=== PATIENT | male | born 1935 | race Caucasian/White ===

== ENCOUNTER 2017-02-20 09:32 | Emergency (ER) | payer MEDICARE ==
[~2017-02-20 09:32] MED LIST: ASPI-555 PO; CLOP75TA32 PO; FOLI0.4T2 PO; FURO-151 PO; ISOS60TA4 PO; LEVO500T2 PO; LOSA25TA21 PO; METO100T14 PO; METR500T PO
[2017-02-20] MEDS ORDERED: IBUPROFEN 800 MG TAB ONE (10:11)
== END 2017-02-20 11:31 | disposition home or self-care (01) ==
LOC: EDH 09:32
DX: M25.511 Pain in right shoulder (principal); I10 Essential (primary) hypertension; I25.10 Atherosclerotic heart disease of native coronary artery without angina pectoris; M19.90 Unspecified osteoarthritis, unspecified site; Z88.8 Allergy status to other drugs, medicaments and biological substances
CPT/HCPCS: 93005

== ENCOUNTER 2018-01-07 10:27 | Emergency (ER) | payer MEDICARE ==
[~2018-01-07 10:27] MED LIST changes: +LOSA25TA16 PO; -LOSA25TA21 PO
== END 2018-01-07 12:03 | disposition home or self-care (01) ==
LOC: EDH 10:27
DX: M13.872 Other specified arthritis, left ankle and foot (principal); I10 Essential (primary) hypertension; I25.10 Atherosclerotic heart disease of native coronary artery without angina pectoris; Z88.8 Allergy status to other drugs, medicaments and biological substances; Z90.49 Acquired absence of other specified parts of digestive tract; Z98.890 Other specified postprocedural states; Z87.891 Personal history of nicotine dependence
CPT/HCPCS: 73660; 96372; 99283; J1030